=== PATIENT | male | born 2000 | race African-American/Black ===

== ENCOUNTER 2020-08-24 09:07 | Emergency (ER) | payer SELFPAY ==
[2020-08-24] MEDS ORDERED: Hydrocortisone 1% Crm 30 GM Tube TOP ONE ×2 (09:39→10:00)
--- NOTE | 2020-08-24 09:42 | EDM.PDOC ---
ED HPI GENERAL MEDICAL PROBLEM - General Chief Complaint: Skin Complaint Stated Complaint: RASH ON LFT Time Seen by Provider: 08/24/20 09:11 - History of Present Illness INITIAL COMMENTS - FREE TEXT/NARRATIVE: Patient is a 19-year-old male. He has a history of eczema when he was a toddler but no problems since then. He has had an itchy rash to the left dorsal hand for the last 1 to 2 weeks. Is worsened over the last few days as he is been applying neomycin ointment. He is also been initially washing with hydrogen peroxide but then 97% alcohol he has been using coconut oil as well and they seem to worsen the burning. He denies pain he denies fevers or chills he states that he otherwise feels well. Symptoms without radiation beyond the wrist no other associated symptoms. Patient also concerned about some intermittent itching that he has had to his genital area he has noticed no rash no drainage and he has no dysuria or hematuria. He has not been sexually active for the last 2 months. He has no symptoms in the genital area at this time. - Related Data Allergies Allergy/AdvReac Type Severity Reaction Status Date / Time No Known Allergies Allergy Verified 08/24/20 09:31 Home Meds: Home Meds . [No Known Home Meds] 08/24/20 [History] Past Medical History - Past Health History Medical/Surgical History: Denies Medical/Surgical History Social & Family History - Tobacco Use Tobacco Use Status *Q: Never Tobacco User - Recreational Drug Use Recreational Drug Use: No ED ROS GENERAL - Review of Systems Review Of Systems: See Below Free Text/Narrative/Comment: General: No fever. Skin: Per HPI Eyes: No vision problems. ENT: No sore throat. Neck: No neck stiffness. Respiratory: No shortness of breath. Cardiac: No chest pain. Gastrointestinal: No nausea, vomiting or abdominal pain. Urinary: Per HPI Musculoskeletal: No myalgias/arthralgias. Neurologic: No headache. ED EXAM, SKIN/RASH Exam: See Below Text/Narrative:: General Appearance: No acute distress, appears comfortable Skin: Pruritic papular rash with papules 1 mm or less involves the dorsum of the left hand it stops at the wrist there is no underlying erythema there is no exudative drainage no focal abscess no significant swelling no findings on the palmar aspect of the hand some dryness in webspaces of that hand. HEENT: Normocephalic/atraumatic, sclera anicteric, mucous membranes moist Neck: Normal range of motion Musculoskeletal: No edema or tenderness : Normal external male genitalia bilateral descended testicles no rash no discharge no tenderness no lymphadenopathy Neurologic: Awake, alert, no obvious deficits, moving all extremities Psychiatric: Appropriate, cooperative Course - Vital Signs Last Recorded V/S: Last Vital Signs Temp 97.2 F 08/24/20 09:28 Pulse 113 H 08/24/20 09:28 Resp 16 08/24/20 09:28 BP 155/79 H 08/24/20 09:28 Pulse Ox 98 08/24/20 09:28 - Orders/Labs/Meds Orders: Active Orders 24 hr Category Date Time Status Hydrocortisone [Hydrocortisone 1% Crm] Med 08/24/20 10:00 Once 0 gm TOP ONETIME ONE Medication Orders Hydrocortisone (Hydrocortisone 1% Crm) 0 gm TOP ONETIME ONE Stop: 08/24/20 10:01 Meds: Medications Generic Name Dose Route Start Last Admin Trade Name Tahir PRN Reason Stop Dose Admin Hydrocortisone 0 gm 08/24/20 10:00 Hydrocortisone 1% Crm TOP 08/24/20 10:01 ONETIME ONE Departure - Departure Time of Disposition: 09:39 Disposition: Home, Self-Care 01 Condition: Good Clinical Impression: Dermatitis, Atopic dermatitis - Discharge Information *PRESCRIPTION DRUG MONITORING PROGRAM REVIEWED*: Not Applicable *COPY OF PRESCRIPTION DRUG MONITORING REPORT IN PATIENT SMOOTH: Not Applicable Instructions: Atopic Dermatitis Referrals: PCP,None [Primary Care Provider] - Forms: ED Department Discharge Additional Instructions: I encourage you to avoid neomycin or other antibiotic ointments for now as well as any other lotions or creams. Apply the hydrocortisone ointment to the back of your hand 2-3 times daily for the next 5 days. Use only gentle soap to wash the area. Your symptoms should improve over the next couple days. You to follow-up with your primary care doctor if you do not have a primary care doctor you can be seen in the [facility] clinic. If you develop a fever worsening pain or the rash spreads please return to the ER. The following information is given to patients seen in the emergency department who are being discharged to home. This information is to outline your options for follow-up care. We provide all patients seen in our emergency department with a follow-up referral. The need for follow-up, as well as the timing and circumstances, are variable depending upon the specifics of your emergency department visit. If you don't have a primary care physician on staff, we will provide you with a referral. We always advise you to contact your personal physician following an emergency department visit to inform them of the circumstance of the visit and for follow-up with them and/or the need for any referrals to a consulting specialist. The emergency department will also refer you to a specialist when appropriate. This referral assures that you have the opportunity for follow-up care with a specialist. All of these measure are taken in an effort to provide you with optimal care, which includes your follow-up. Under all circumstances we always encourage you to contact your private physician who remains a resource for coordinating your care. When calling for follow-up care, please make the office aware that this follow-up is from your recent emergency room visit. If for any reason you are refused follow-up, please contact the [facility] Emergency Department at and asked to speak to the emergency department charge nurse. Sepsis Event Note (ED) - Evaluation Sepsis Screening Result: No Definite Risk - Focused Exam Vital Signs: Vital Signs Temp Pulse Resp BP Pulse Ox 08/24/20 09:28 97.2 F 113 H 16 155/79 H 98 - My Orders Last 24 Hours: My Active Orders 08/24/20 10:00 Hydrocortisone [Hydrocortisone 1% Crm] 0 gm TOP ONETIME ONE - Assessment/Plan Last 24 Hours: My Active Orders 08/24/20 10:00 Hydrocortisone [Hydrocortisone 1% Crm] 0 gm TOP ONETIME ONE Assessment:: 19-year-old male presenting with signs and symptoms most consistent with an atopic dermatitis no signs of overlying cellulitis or abscess no sign of deep space infection of the hand no signs of acute systemic illness. Patient's exam is unremarkable I do not see signs of an active medical process there. We discussed avoiding Neosporin and creams and lotions washing his hand with a gentle soap and water as well as starting hydrocortisone 1 application 3 times daily for 5 days patient encouraged to follow-up with his primary care doctor.
== END 2020-08-24 10:33 | disposition home or self-care (01) ==
LOC: MW.ED 09:07
DX: L20.9 Atopic dermatitis, unspecified (principal)
CPT/HCPCS: 99282; A9270